=== PATIENT | female | born 1990 | race Asian ===

== ENCOUNTER 2016-07-22 09:55 | Emergency (ER) | payer BC ==
[~2016-07-22] VITALS: Ht 167.6 cm; Wt 55.0 kg
[2016-07-22] MEDS ORDERED: DIPHENHYDRAMINE 50MG CAPSULE PO ONE (10:15)
[2016-07-22 10:55] VITALS: BP 130/75
== END 2016-07-22 10:55 | disposition home or self-care (01) ==
LOC: ER 10:18
DX: R06.02 Shortness of breath (principal); L29.9 Pruritus, unspecified; T50.995A Adverse effect of other drugs, medicaments and biological substances, initial encounter; Y92.538 Other ambulatory health services establishments as the place of occurrence of the external cause; J45.909 Unspecified asthma, uncomplicated
CPT/HCPCS: 99283; Q0163